=== PATIENT | female | born 1950 | race Caucasian/White ===

== ENCOUNTER 2017-06-29 23:49 | Observation (INO) | payer MEDICARE ==
[~2017-06-29] VITALS: Ht 167.6 cm; Wt 73.0 kg
[2017-06-30] MEDS ORDERED: ASPIR-LOW81 MG PO (00:15)
[2017-06-30] MEDS ORDERED: XANAX XR0.5 MG PO (00:15)
[2017-06-30] MEDS ORDERED: LISINOPRIL20 MG PO (00:16)
[2017-06-30] MEDS ORDERED: ATENOLOL50 MG PO (00:16)
[2017-06-30] MEDS ORDERED: LEVOTHYROXINE50 MCG PO (00:17)
[2017-06-30] MEDS ORDERED: SIMVASTATIN20 MG PO (00:17)
--- NOTE | 2017-06-30 05:00 | NUR ---
HANDOFF REPORT RECEIVED FROM ED RN PT TO ARRIVE BY STRETCHER WITH MILITARY TECHNOLOGY MANAGER.
--- NOTE | 2017-06-30 05:59 | NUR ---
PT ARRIVES TO MED SURG FLOOR BY STRETCHER WITH EVA CHA AT 0515. PT IN RESTROOM FOR 400 ML VOID. PT AMBULATES INDEPENDENTLY IN ROOM WITH STEADY GATE. IVF INFUSING IN RIGHT FOREARM WNL. PT DENIES ANY PAIN AT THIS TIME, "JUST BLOATING". ABDOMEN SOFT, BOWEL TONES ACTIVE X 4. NON SLIP SOCKS APPLIED TO PT. PT GIVEN CALL LIGHT, INSTRUCTED TO CALL FOR ANY NEEDS. PT REQUESTS TO SLEEP DURING REPORT IF SHE IS ASLEEP. VITALS WNL. GIVEN WARM BLANKET, ICE WATER REQUESTED. LIGHTS OFF IN ROOM.
--- NOTE | 2017-06-30 06:20 | NUR ---
PT CAME TO MED SURG FLOOR AT 0515, INDEPENDENT IN ROOM. PT ALERT AND ORIENTED X 4. PT DENIES PAIN, COMPLAINS OF BLOATING. SUFFICIENT URINE OUTPUT. PT RECEIVING IVF WNL. PT EAGER TO DISCUSS FINDINGS OF CT SCAN WITH .
--- NOTE | 2017-06-30 06:59 | NUR ---
ANSWERED CALL LIGHT, IV PUMP BEEPING, ASSESSED SITE WNL. EMPTIED URINE HAT 800 ML. CALL LIGHT IN REACH.
--- NOTE | 2017-06-30 08:19 | NUR ---
PATIENT SAID SHE DIDN'T WANT A SHOWER TODAY. INDEPENDENT. IF SHE NEEDED ANYTHING PLEASE CALL. SHE SAID SHE DIDN'T GET ANY SLEEP.
--- NOTE | 2017-06-30 08:51 | NUR ---
PATIENT RESTING IN BED WITH EYES CLOSED, WILL ALLOW PATIENT TO REST A WHILE LONGER.
--- NOTE | 2017-06-30 09:51 | NUR ---
PATIENT MEDICATION GIVEN TO HER AND ASSESSMENT COMPLETE. SHE HAS NO C/O PAIN THIS AM AND DOCTOR EREN WAS IN TO SEE THE PATIENT. SHE IS STEADY ON HER FEET AND VOIDING WITHOUT ANY PAIN. SHE TOLERATED BREAKFAST WITHOUT ANY C/O NAUSEA.
--- NOTE | 2017-06-30 10:57 | NUR ---
PATIENT HAS BEEN RESTING IN BED, NO C/O PAIN AND NO NEEDS AT THIS TIME, GAVE PATIENT HER NOTEPAD TO CALL HER DAUGHTER.
--- NOTE | 2017-06-30 12:29 | NUR ---
PATIENT'S IV SALINE LOCKED AT THIS TIME, PATIENT TOLERATED 100% OF HER FOOD AND IS VOIDING WITHOUT ANY PAIN. SHE IS STEADY ON HER FEET.
--- NOTE | 2017-06-30 12:48 | NUR ---
PATIENT AMBULATED ON RA AND TOLERATED AMBULATION WELL WITHOUT ANY PAIN
--- NOTE | 2017-06-30 14:21 | NUR ---
PATIENT IS READY TO D/C HOME, WAITING FOR THE DOCTOR'S ORDER.
[2017-06-30] MEDS ORDERED: CEPHALEXIN500 MG PO (14:54)
== END 2017-06-30 15:10 | disposition home or self-care (01) ==
LOC: ED 23:49 → MS 23:51
PROVIDERS: ADMIT Internal Medicine
DX: N30.00 Acute cystitis without hematuria (principal); I10 Essential (primary) hypertension; E78.5 Hyperlipidemia, unspecified; F41.9 Anxiety disorder, unspecified; Z88.8 Allergy status to other drugs, medicaments and biological substances; Z85.3 Personal history of malignant neoplasm of breast; Z79.82 Long term (current) use of aspirin; Z79.899 Other long term (current) drug therapy
CPT/HCPCS: 74177; 80053; 81001; 83605; 83690; 85025; 87088; 96361; 96374; 96375; 99284; G0378; J0295; J0696; J2405; J3010; J7040; J7120; Q9967

== ENCOUNTER 2017-12-27 08:54 | Emergency (ER) | payer MEDICARE ==
[~2017-12-27] VITALS: Ht 167.6 cm; Wt 73.0 kg
[~2017-12-27 08:54] MED LIST: ASPIR-LOW81 MG PO; ATENOLOL50 MG PO; CEPHALEXIN500 MG PO; LEVOTHYROXINE50 MCG PO; LISINOPRIL20 MG PO; SIMVASTATIN20 MG PO; XANAX XR0.5 MG PO
== END 2017-12-27 10:07 | disposition home or self-care (01) ==
LOC: ED 08:54
DX: J06.9 Acute upper respiratory infection, unspecified (principal); I10 Essential (primary) hypertension; E78.00 Pure hypercholesterolemia, unspecified; F41.9 Anxiety disorder, unspecified; Z88.8 Allergy status to other drugs, medicaments and biological substances; Z79.82 Long term (current) use of aspirin; Z79.899 Other long term (current) drug therapy
CPT/HCPCS: 87880; 99283

== ENCOUNTER 2020-07-26 18:10 | Emergency (ER) | payer MEDICARE, OTHER ==
[~2020-07-26] VITALS: Ht 167.6 cm; Wt 73.9 kg
--- OUTSIDE RECORDS SUMMARY | 2020-07-26 18:12 | XMS ---
PreManage Notification: ERIK TAVAREZ Security Sign Language Teacher Events No recent Security Events currently on file [facility] There are no care providers on record at this time. Marj has no Care Guidelines for this patient. Sonia VISIT COUNT (12 MO.) 1 [facility] TOTAL 1 NOTE: Visits indicate total known visits. ED/UCC VISIT TRACKING (12 MO.) 07/26/2020 18:11 [facility] [place] TYPE: Emergency COMPLAINT: - POSSIBLE HERNIA INPATIENT VISIT TRACKING (12 MO.) No inpatient visits to display in this time frame [email or web address]
== END 2020-07-26 22:09 | disposition home or self-care (01) ==
LOC: ED 18:10
DX: R10.84 Generalized abdominal pain (principal); I10 Essential (primary) hypertension; E78.00 Pure hypercholesterolemia, unspecified; Z87.891 Personal history of nicotine dependence; Z88.8 Allergy status to other drugs, medicaments and biological substances; Z79.899 Other long term (current) drug therapy
CPT/HCPCS: 74177; 80053; 81001; 83690; 85025; 99284-25; Q9967

== ENCOUNTER 2020-12-01 06:21 | Day surgery (SDC) | payer MEDICARE, OTHER ==
[~2020-12-01] VITALS: Ht 167.6 cm; Wt 78.0 kg
[~2020-12-01 06:21] MED LIST changes: +AMERGE2.5 MG PO; +D3-200050 MCG PO; +KAPSPARGO SPRIN50 MG PO; +LIPITOR10 MG PO; +MAGNESIUM400 MG PO; +NAPROXEN500 MG PO; +VITAMIN D210 MCG PO
--- NOTE | 2020-12-01 08:07 | NUR ---
12/01/20 0807 Fanta Garcia 0803 PATIENT ARRIVES TO PACU RESTING WITH EYES CLOSED. OPENS EYES WITH VERBAL STIMULI, BACK TO SLEEP WHEN NOT STIMULATED. RESP EVEN AND UNLABORED, NC AT 2 LITERS.
--- NOTE | 2020-12-01 08:36 | NUR ---
PT ALERT, ORIENTED AND ANXIOUS ABOUT HER SCOPE. THIS IS HER FIRST, PREP KEPT HER UP MOST OF NIGHT. HAD POSITIVE TIME OF DEBRIEFING WITH PT. PT REQUESTED PRAYER AND A WARM BLANKET. GAVE BLESSING, WILL FOLLOW
--- NOTE | 2020-12-01 09:25 | NUR ---
PT IS BACK TO FROM PACU. SHE IS BACK TO SLEEP FOR A WHILE. SHE IS DOING WELL, SHE HAS WATER AND CALL LIGHT WITHIN REACH.
--- NOTE | 2020-12-01 11:07 | NUR ---
TEODORA 1025: PT IS GIVEN VERBAL DC INSTRUCTIONS, SHE VERBALIZES UNDERSTANDING. QUESTIONS ARE ASKED AND ANSWERED. SHE IS TAKEN TO VEHICLE VIA WC. SHE IS ABLE TO TRANSFER HERSELF FROM WC TO VEHICLE.
--- NOTE | 2020-12-01 17:06 | OR ---
[facility] [address], [place] [address] Signed DATE OF OPERATION: 12/01/2020 SURGEON: Pallavi Tapia MD PREOPERATIVE DIAGNOSIS: Brother with anal cancer and colonic polyps. POSTOPERATIVE DIAGNOSIS: A 7 mm sessile polyp in proximal transverse colon. PROCEDURE: Colonoscopy with hot biopsy. ESTIMATED BLOOD LOSS: None. INDICATIONS: Leta is a 70-year-old female asked to see me for her initial screening colonoscopy. She has no lower GI complaints. However, her brother Gareth had anal cancer treated at the medical school in [place], [place]. She thinks she also had colonic polyps. In the office, I gave Leta a pamphlet on colonoscopy. She understands the nature of the test along with the risks including, but not limited to gas bloating, crampy abdominal pain, bleeding, perforation requiring surgery, and missed diagnosis. She also understands the need for IV conscious sedation. She had expressed understanding and wished to proceed. PROCEDURE NOTE: Leta was taken into our endoscopy suite and placed in the left lateral decubitus position. She was given IV sedation with 8 mg of Versed and 150 mcg of fentanyl to cover the case. A digital rectal exam was performed and this was unremarkable. The adult colonoscope was introduced and advanced all around into the cecum under direct visualization of camera without difficulty. It took a little extra sedation and abdominal compression in order to advance the scope. Her prep was quite excellent. We could easily see the appendiceal orifice and the ileocecal valve. The scope was then slowly withdrawn. We discovered a 7 mm sessile polyp in the proximal transverse colon. It was easily removed with several bites of the hot biopsy forceps. The rest of the colon was unremarkable. There was no diverticulosis. The rectum was unremarkable. Upon retroflexion of the scope, there was no additional pathology noted above the anal canal. After this, the gas was suctioned out and the colonoscope removed. Leta tolerated the procedure quite well. Electronically Signed By: PALLAVI TAPIA MD 12/01/20 1706 PATIENT NAME: LETA TAVAREZ OPERATIVE REPORT DATE OF : 52 REPORT #: [id number] PHYSICIAN: PALLAVI TAPIA MD PCP: [facility] REPORT IS CONFIDENTIAL AND NOT TO BE RELEASED WITHOUT AUTHORIZATION [address] [address] Signed RECOMMENDATIONS: I will see Leta back in my office in 7 to 14 days to review her results. She will more than likely need colonoscopy every 5 years. MD DAVID Fiore/GEORGIE /[id number] cc: [facility] Pallavi Tapia MD Copies: PALLAVI TAPIA MD ~ Electronically Signed By: PALLAVI TAPIA MD 12/01/20 1706 PATIENT NAME: LETA TAVAREZ OPERATIVE REPORT DATE OF : 52 REPORT #: [id number] PHYSICIAN: PALLAVI TAPIA MD PCP: [facility] REPORT IS CONFIDENTIAL AND NOT TO BE RELEASED WITHOUT AUTHORIZATION
--- NOTE | 2020-12-02 12:23 | PATH ---
[facility] [address] [place], [place] [address] Signed SPECIMEN(S): A PROXIMAL TRANSVERSE POLYP SPECIMEN SOURCE: A. PROXIMAL TRANSVERSE POLYP CLINICAL HISTORY: Colon screening; family history of anal CA/colon polyp. MICROSCOPIC DESCRIPTION: Histologic sections of all submitted blocks are examined by light microscopy. These findings, together with the gross examination, support the pathologic diagnosis. FINAL PATHOLOGIC DIAGNOSIS: Colon, proximal transverse, polyp, polypectomy: - Fragments of sessile serrated lesion. - Negative for dysplasia or malignancy. NAL:cml:C2NR GROSS DESCRIPTION: The specimen, labeled ", 1," and designated on the requisition "proximal transverse polyp," is received in formalin and consists of five louis soft tissue fragments that measure 0.3 cm in greatest dimension. The specimen is entirely submitted in cassette (A1). AT (under the direct supervision of a pathologist) The Gross Description was prepared using a voice recognition system. The report was reviewed for accuracy; however, sound-alike word errors, addition and/or deletions may occur. If there is any question about this report, please contact Client Services. PERFORMING LABORATORY: The technical component was performed by [employer], [address] [place] [id number] (Data Processing Manager: Carmen Briggs MD; CLIA# [id number]). [facility] [address] [address] (CLIA# [id number]). Diagnostician: Sarah Davies MD Pathologist Electronically Signed 12/02/2020 PATIENT NAME: ERIK TAVAREZ PATHOLOGY DATE OF : 52 REPORT #: [id number] PHYSICIAN: JEREMI PATHOLOGY PCP: [facility] REPORT IS CONFIDENTIAL AND NOT TO BE RELEASED WITHOUT AUTHORIZATION [address] [place] [address] Signed Copies: ~ PATIENT NAME: ERIK TAVAREZ PATHOLOGY DATE OF : 52 REPORT #: [id number] PHYSICIAN: JEREMI PATHOLOGY PCP: [facility] REPORT IS CONFIDENTIAL AND NOT TO BE RELEASED WITHOUT AUTHORIZATION
== END 2020-12-01 10:30 | disposition home or self-care (01) ==
LOC: OPS 06:21 → DS 06:21 → OPS 07:30 → DS 07:30 → OPS 10:30 → DS 12-17 09:00
PROVIDERS: ATTEND Colon & Rectal Surgery
PROC: 0DBL8ZZ Excision of Transverse Colon, Via Natural or Artificial Opening Endoscopic (ICD-10-PCS; principal; 2020-12-01 07:30)
DX: Z12.11 Encounter for screening for malignant neoplasm of colon (principal); D12.3 Benign neoplasm of transverse colon; I10 Essential (primary) hypertension; E78.5 Hyperlipidemia, unspecified; E03.9 Hypothyroidism, unspecified; Z85.3 Personal history of malignant neoplasm of breast; Z90.13 Acquired absence of bilateral breasts and nipples; Z80.0 Family history of malignant neoplasm of digestive organs; Z83.71 Family history of colonic polyps
CPT/HCPCS: 88305; 99153; G0500; J2250; J3010; J7121

== ENCOUNTER 2022-10-05 11:57 | Emergency (ER) | payer MEDICARE, BC ==
[~2022-10-05] VITALS: Ht 167.6 cm; Wt 75.3 kg
--- OUTSIDE RECORDS SUMMARY | 2022-10-05 12:00 | XMS ---
PreManage Notification: ERIK TAVAREZ Security Breaster Events No recent Security Events currently on file CRITERIA MET - [facility] PROVID[facility] 07/27/2020-[facility] PHONE: [phone] Marj has no Care Guidelines for this patient. Care History Medical/Surgical 07/27/2020 [facility] - PATIENT IS [facility] ELIGIBLE, \T\middot;\T\nbsp; PLEASE REFER PATIENT TO [facility] FOR NON EMERGENT MEDICAL NEEDS. \T\middot;\T\nbsp; [facility] CAN SEE PATIENTS SAME DAY FOR APTS IF PATIENT CALLS FIRST THING IN THE MORNING. E.D. VISIT COUNT (12 MO.) [address] [place] [address] TOTAL 1 NOTE: Visits indicate total known visits. ED/UCC VISIT TRACKING (12 MO.) 10/05/2022 11:[address] [facility] [place] TYPE: Emergency COMPLAINT: - HIGH B/P INPATIENT VISIT TRACKING (12 MO.) No inpatient visits to display in this time frame [email or web address]
[2022-10-05] MEDS ORDERED: ATENOLOL50 MG PO (12:42)
== END 2022-10-05 13:00 | disposition home or self-care (01) ==
LOC: ED 11:57
DX: I10 Essential (primary) hypertension (principal); F41.9 Anxiety disorder, unspecified; Z87.891 Personal history of nicotine dependence; Z88.1 Allergy status to other antibiotic agents; Z79.899 Other long term (current) drug therapy
CPT/HCPCS: 99283